=== PATIENT | male | born 1995 | race Caucasian/White ===

== ENCOUNTER 2017-03-06 08:27 | Emergency (ER) | payer OTHER ==
[~2017-03-06] VITALS: Ht 177.8 cm; Wt 59.0 kg
--- NOTE | 2017-03-06 08:34 | ER.PDOC ---
General Chief Complaint: Requesting Medical Care Stated Complaint: ABD PAIN,VOMITING BLOOD Time seen by MD: 08:33 Source: patient Exam Limitations: no limitations History of Present Illness Initial Comments vomiting, abdominal pain, last pm, associated with blood in vomitus. Timing/Duration: 4-6 hours Severity/Quality: moderate Radiation: no radiation Associated Symptoms: other (sharp intermittant abd pain, gone now) Exacerbated by: nothing Relieved By: nothing Vital Signs First Vital Signs Date Time Temp Pulse Resp B/P (MAP) Pulse Ox O2 Delivery O2 Flow Rate FiO2 03/06/17 08:33 98.5 102 20 96 03/06/17 08:36 130/86 (101) Last Vital Signs Date Time Temp Pulse Resp B/P (MAP) Pulse Ox O2 Delivery O2 Flow Rate FiO2 03/06/17 08:36 98.5 102 20 130/86 (101) 96 Past Medical History Medical History: no pertinent history Surgical History: no surgical history Family History Significant Family History: no pertinent family hx Social History Smoking: non-smoker Alcohol Use: none Drug Use: none Reviewed Nursing Reviewed: Vital Signs, Abn. Noted, Nursing Assessment Constitutional: no symptoms reported EENTM: no symptoms reported Respiratory: no symptoms reported Cardiovascular: no symptoms reported Gastrointestinal: see HPI Genitourinary: no symptoms reported Musculoskeletal: no symptoms reported Skin: no symptoms reported Psychiatric/Neurological: no symptoms reported Endocrine: no symptoms reported Hematologic/Lymphatic: no symptoms reported All Other Systems: Reviewed and Negative Physical Exam General Appearance: No Apparent Distress, WD/WN HEENT: PERRL/EOMI, Normal ENT Inspection, TMs Normal, Pharynx Normal Neck: Non-Tender, Full Range of Motion, Supple, Normal Inspection Respiratory: chest non-tender, lungs clear, normal breath sounds, no respiratory distress, no accessory muscle use Cardiovascular: Normal Peripheral Pulses, Regular Rate, Rhythm, No Edema, No Gallop, No JVD, No Murmur Gastrointestinal: Normal Bowel Sounds, Non Tender, Soft Back: Normal Inspection, No CVA Tenderness, No Vertebral Tenderness Extremities: Normal Range of Motion, Non-Tender, Normal Inspection, No Pedal Edema, No Calf Tenderness, Normal Capillary Refill, Pelvis Stable Neurologic/Psychiatric: insulation blower II-XII NML as Tested, No Motor/Sensory Deficits, Alert, Normal Mood/Affect, Oriented x 3 Skin: Normal Color, Warm/Dry Lymphatic: No Adenopathy Results/Orders Results/Orders Laboratory Tests Test 03/06/17 08:32 White Blood Count 13.0 10^3/uL Red Blood Count 5.29 10^6/uL Hemoglobin 16.2 g/dL Hematocrit 46.7 % Mean Corpuscular Volume 88.3 fL Mean Corpuscular Hemoglobin 30.6 pg Mean Corpuscular Hemoglobin Concent 34.7 g/dL Red Cell Distribution Width 12.1 % Platelet Count 160 10^3/uL Mean Platelet Volume 10.1 fL Neutrophils (%) (Auto) 79.1 % Lymphocytes (%) (Auto) 8.2 % Monocytes (%) (Auto) 8.8 % Neutrophils # (Auto) 10.3 10^3/uL Lymphocytes # (Auto) 1.1 10^3/uL Monocytes # (Auto) 1.1 10^3/uL Absolute Immature Granulocyte (auto 0.02 10^3 u/L Eosinophils % 3.5 % Basophils % 0.2 % Basophils # 0.0 10^3/uL Eosinophil Count 0.5 10^3/uL Prothrombin Time 10.9 SEC Prothromb Time International Ratio 1.0 Activated Partial Thromboplast Time 24.3 SEC Sodium Level 139 mmol/L Potassium Level 4.3 mmol/L Chloride Level 101.0 mmol/L Carbon Dioxide Level 26.5 mmol/L Anion Gap 15.8 Blood Urea Nitrogen 10 mg/dL Creatinine 0.84 mg/dL Estimated GFR () 139.6 BUN/Creatinine Ratio 11.0 Glucose Level 93 mg/dL Calculated Osmolality 286.5 Calcium Level 8.9 mg/dL Total Bilirubin 3.9 mg/dL Aspartate Amino Transf (AST/SGOT) 12 U/L Alanine Aminotransferase (ALT/SGPT) 22 U/L Alkaline Phosphatase 90 U/L Total Protein 7.6 g/dL Albumin 4.6 g/dL Globulin 3.0 Amylase Level 36 U/L Lipase 73 U/L Percent Immature Gran (Cell Imm) 0.20 % Helicobacter pylori Screen Negative Departure Time of Disposition: 09:04 Disposition: 01 HOME, SELF-CARE Impression: Primary Impression: Vomiting Condition: Stable Referrals: PCP,UNKNOWN (PCP) PRIMARY CARE PROVIDER Additional Instructions: see your PCP get upper endoscopy return PRN Zofran 4mg 1 q 4 hours PRN #10 Problem Qualifiers Primary Impression: Vomiting Vomiting type: hematemesis Nausea presence: with nausea Qualified Codes: K92.0 - Hematemesis; R11.0 - Nausea TIFFANIE GERMAN MD Mar 06, 2017 08:34
--- NOTE | 2017-03-06 08:34 | NUR ---
ARRIVAL PT AMBULATED WELL TO ROOM 3. NO ACUTE DISTRESS. PT ALERT AND COOP. PLACED ON MONITOR AND TRIAGE DONE
[2017-03-06 08:43] LABS: BASOPHIL % 0.2 % (0.0-0.2); EOSINOPHIL # 0.5 10^3/uL (0.0-0.2); EOSINOPHIL % 3.5 % (0.0-5.0); HEMATOCRIT 46.7 % (37.0-53.0); HEMOGLOBIN 16.2 g/dL (13.9-16.3); LYMPHOCYTES # 1.1 10^3/uL (1.0-4.8); LYMPHOCYTES % 8.2 % (24.0-44.0); MEAN CELL HGB 30.6 pg (26-34); MEAN CELL HGB CONCENTRATION 34.7 g/dL (33-37); MEAN CORP VOLUME 88.3 fL (78-100); MEAN PLATELET VOLUME 10.1 fL (7.8-11.0); MONOCYTES # 1.1 10^3/uL (0.3-0.8); MONOCYTES % 8.8 % (5.0-12.0); NEUTROPHIL # 10.3 10^3/uL (1.8-7.7); NEUTROPHILS % 79.1 % (41.0-85.0); RED CELL DISTRIBUTION WIDTH 12.1 % (11.5-14.5)
[2017-03-06 08:58] LABS: CALCIUM 8.9 mg/dL (8.4-10.5); CARBON DIOXIDE 26.5 mmol/L (20.0-32)
[2017-03-06 09:20] VITALS: BP 130/86
[2017-03-06 09:20] LABS: BILIRUBIN,URINE NEGATIVE (NEGATIVE); UROBILINOGEN,URINE NORMAL (NEGATIVE)
[2017-03-06 09:34] LABS: APPEARANCE,URINE SLIGHTLY HAZY (CLEAR); UA COLOR AMBER (YELLOW)
== END 2017-03-06 09:20 | disposition home or self-care (01) ==
LOC: ER 08:27
DX: K92.0 Hematemesis (principal); R10.9 Unspecified abdominal pain
CPT/HCPCS: 36415; 80053; 81000; 82150; 83690; 85025; 85610; 85730; 86677; 99284